=== PATIENT | male | born 1930 | race Caucasian/White ===

== ENCOUNTER 2017-06-15 14:47 | Emergency (ER) | payer MEDICARE, OTHER ==
[~2017-06-15] VITALS: Ht 157.5 cm; Wt 61.2 kg
[~2017-06-15 14:47] MED LIST: ACETAMINOPHEN325 M1 PO; AMOX TR-K CLV1 EAC1 PO; ASPIRIN EC81 MG PO; CARVEDILOL3.125 MG PO; COZAAR25 MG PO; ETODOLAC400 MG PO; FEOSOL325 MG PO; FINASTERIDE5 MG PO; GLIPIZIDE5 MG PO; METFORMIN HCL850 MG PO; NORCO 5-325 TA1 EACH PO; ONGLYZA5 MG PO; PAROXETINE HCL20 MG PO; PRAVASTATIN SOD40 MG PO; PRILOSEC20 MG PO; TOPROL XL25 MG PO; VITAMIN C500 M1 PO; VITAMIN D1000 UNIT PO
== END 2017-06-15 16:05 | disposition left against medical advice (07) ==
LOC: ED 14:47
DX: Z53.21 Procedure and treatment not carried out due to patient leaving prior to being seen by health care provider (principal)

== ENCOUNTER 2018-06-30 16:04 | Inpatient (IN) | payer OTHER ==
[~2018-06-30] VITALS: Ht 157.5 cm; Wt 54.1 kg
--- NOTE | ~2018-06-30 | DS ---
[facility] [address] [place], [place] [address] Draft ADMISSION DATE: 07/01/2018 DISCHARGE DATE: 07/04/2018 FINAL DIAGNOSES AT THE TIME OF DISCHARGE: 1. Intertrochanteric fracture, right hip. 2. Severe dementia. 3. Diabetes. HOSPITAL COURSE: The patient presented to the emergency room on 07/01/2018 because of a fall at home. He was seen in the ER where x-rays revealed a displaced intertrochanteric fracture of the right hip. He was admitted to the Orthopedic Service. He was evaluated by the hospitalist and thought to be medically optimized for hip stabilization. On the , he was taken the operating room, where he underwent an intramedullary nail fixation of his intertrochanteric hip fracture. Postoperatively, he has done well. He has extremely limited functional goals because of his severe dementia. However, he has been hemodynamically stable, his incisions are clean and dry. He is afebrile. His neurovascular exam has remained unchanged. We are going to discharge him home per his 's request. We pointed out to her that she may need some help in dealing with at home, but she seems absolutely adamant that she needs to take him home and will not consider placement in a facility. We are not going to maintain him on anticoagulation medications because his indicates he has frequent falls at home. We will see him back in two weeks for suture/staple removal. MD KD Crook/BREN /[id number] Copies: PATIENT NAME: AUGUST LUCERO DISCHARGE SUMMARY DATE OF : 31 REPORT #: [id number] PHYSICIAN: PRISCILLA FRAZIER MD PCP: SAUMYA SERRA MD REPORT IS CONFIDENTIAL AND NOT TO BE RELEASED WITHOUT AUTHORIZATION [address] [address] Draft ~ PATIENT NAME: AUGUST LUCERO DISCHARGE SUMMARY DATE OF : 31 REPORT #: [id number] PHYSICIAN: PRISCILLA FRAZIER MD PCP: SAUMYA SERRA MD REPORT IS CONFIDENTIAL AND NOT TO BE RELEASED WITHOUT AUTHORIZATION
--- OUTSIDE RECORDS SUMMARY | ~2018-06-30 | XMS | Clinical Summary ---
Demographics + + + | Address | [address] | | | [place] [address] | + + + | Home Phone | | + + + | Preferred Language | Unknown | + + + | Marital Status | | + + + | Bahai Affiliation | Unknown | + + + | Race | Unknown | + + + | Ethnic Group | Unknown | + + + Author + + + | Author | [facility] | + + + | Organization | [facility] | + + + | Address | Unknown | + + + | Phone | Unavailable | + + + Support + + +---------+ + | Name | Relationship | Address | Phone | + + +---------+ + | Velma Duque | ECON | Unknown | | + + +---------+ + | Carol Monroe | ECON | Unknown | | + + +---------+ + Care Team Providers + +------+ + | Care [place] Sheriff Name | Role | Phone | + +------+ + | Dr. Malena | PP | Unavailable | + +------+ + Allergies No Known Allergies Current Medications + + +-------+---------+------+------+-------+ | Prescription | Sig. | Disp. | Refills | Star | End | Statu | | | | | | t | Date | s | | | | | | Date | | | + + +-------+---------+------+------+-------+ | metFORMIN | Take 850 mg by mouth | | | | | Activ | | (GLUCOPHAGE) 850 MG | 2 (two) times daily | | | | | e | | tablet | with meals. | | | | | | + + +-------+---------+------+------+-------+ | glipiZIDE | Take 5 mg by mouth | | | | | Activ | | (GLUCOTROL) 5 MG | daily. One and a | | | | | e | | tablet | half tab | | | | | | + + +-------+---------+------+------+-------+ | ferrous sulfate | Take 325 mg by mouth | | | | | Activ | | 325 (65 FE) MG | 3 (three) times | | | | | e | | tablet | daily with meals. | | | | | | + + +-------+---------+------+------+-------+ | finasteride | Take 5 mg by mouth | | | | | Activ | | (PROSCAR) 5 MG | daily. | | | | | e | | tablet | | | | | | | + + +-------+---------+------+------+-------+ | PARoxetine (PAXIL) | Take 20 mg by mouth | | | | | Activ | | 20 MG tablet | daily. | | | | | e | + + +-------+---------+------+------+-------+ | omeprazole | Take 20 mg by mouth | | | | | Activ | | (PRILOSEC) 20 MG | daily. | | | | | e | | capsule | | | | | | | + + +-------+---------+------+------+-------+ | pravastatin | Take 40 mg by mouth | | | | | Activ | | (PRAVACHOL) 40 MG | daily. | | | | | e | | tablet | | | | | | | + + +-------+---------+------+------+-------+ | Ascorbic Acid | Take 500 mg by mouth | | | | | Activ | | (VITAMIN C) 500 MG | daily. | | | | | e | | tablet | | | | | | | + + +-------+---------+------+------+-------+ | aspirin 81 MG EC | Take 81 mg by mouth | | | | | Activ | | tablet | daily with | | | | | e | | | breakfast. | | | | | | + + +-------+---------+------+------+-------+ | carvedilol (COREG) | Take 3.125 mg by | | | | | Activ | | 3.125 MG tablet | mouth 2 (two) times | | | | | e | | | daily with meals. | | | | | | + + +-------+---------+------+------+-------+ | saxagliptin | Take 1 tablet by | | | | | Activ | | (ONGLYZA) 5 MG | mouth daily. | | | | | e | | tablet | | | | | | | + + +-------+---------+------+------+-------+ | Cholecalciferol | Take 1,000 Units by | | | | | Activ | | 1000 UNITS capsule | mouth daily. | | | | | e | + + +-------+---------+------+------+-------+ | losartan (COZAAR) | Take 50 mg by mouth | | | | | Activ | | 50 MG tablet | daily. | | | | | e | + + +-------+---------+------+------+-------+ Active Problems + + + | Problem | Noted Date | + + + | CAD (coronary artery disease) | 09/08/2013 | + + + + + | Last Assessment & Plan: Low grade CAD, Hx CAGB*1 (SVG to D2) | | at time of AVR. 83yo WM, doing relatively well, he | | continues to be modestly active. He is hard of hearing, his | | is with him, he denies any chest pain, shortness of breath, | | palpitations, or lightheadedness. No new visual disturbances, | | dysarthria, dysphasia, lateralizing signs or symptoms. Since | | last seen, one year ago, no surgical procedures or | | hospitalizations. [facility], [facility] | | anticipated. Tolerating medications. No changes in therapy.Hx | | CAB02/23/2012, CABG*1/AVR (#23 Manga-Ease, SVG to D1). Hx | | PCI/stent: 01/1997Hx Pacemaker/ICD: noLast Cath, 02/22/2012: left | | main OK, LAD OK, D2 90%, 10% prox-RCA. Severe .Last Echo, | | 02/21/2012: severe (calc MAR 0.7cm2, peak/mean gradients | | 60/36mmHg), mild-moderate MR, moderate TR, mild concentric LVH, | | LVEF 60-65%, mild bi-Atrial enlargement, RV enlarged, est | | systolic PAP 44-49mmHg.Last stress test, Lexiscan, 10/16/2009: NML | | perfusion, LVEf 77%.ECG, 11/23/2014: sinus rhythm, 1st degree | | AVB, non-spec ST-T changes laterally. | + + + + + | Hyperlipidemia | 09/08/2013 | + + + + + | Last Assessment & Plan: Hyperlipidemia, continue current meds | | at current dose (losartan). Labs anticipated. | + + + + + | Postprocedural non-healing wound | 03/06/2012 | + + + | Insomnia | 03/04/2012 | + + + | S/P AVR (aortic valve replacement) | 02/28/2012 | + + + + + | Last Assessment & Plan: Hx , s/p AVR/CABG*1 (#23 | | Magna-Ease, SVG to D2) 02/23/2012. Endocarditis prophylaxis | | reenforced. | + + + + + | DM (diabetes mellitus) | 02/28/2012 | + + + + + | Last Assessment & Plan: DM2, managed by PCP. | + + + + + | Edema | 02/28/2012 | + + + | HTN (hypertension) | 02/28/2012 | + + + + + | Last Assessment & Plan: HTN, controlled, continue current | | meds at current doses (carvedilol, losartan). | + + + + + | Impaired mobility and ADLs | 02/28/2012 | + + + | Gait difficulty | 02/28/2012 | + + + | Dementia | 02/21/2012 | + + + | Severe aortic stenosis | 02/21/2012 | + + + | Syncope and collapse | 02/20/2012 | + + + Family History + + +------+ + | Medical History | Relation | Name | Comments | + + +------+ + | Diabetes type II | Brother | | | + + +------+ + | Heart disease | Brother | | | + + +------+ + + +------+ + + | Relation | Name | Status | Comments | + +------+ + + | Brother | | | | + +------+ + + | Father | | | | + +------+ + + | Mother | | | | + +------+ + + Social History + +-------+ +--------+------+ | Tobacco Use | Types | Packs/Day | Years | Date | | | | | Used | | + +-------+ +--------+------+ | Former Smoker | | | | | + +-------+ +--------+------+ + +---+---+---+ | Smokeless Tobacco: | | | | | Never Used | | | | + +---+---+---+ + + | Comments: Pt quit smoking over 50 years ago | + + + + +---------+ + | Alcohol Use | Drinks/We | oz/Week | Comments | | | ek | | | + + +---------+ + | No | 0 | 0.0 | | | | Standard | | | | | drinks or | | | | | | | | | | equivalen | | | | | t | | | + + +---------+ + + + + | Sex Assigned at | Date Recorded | | | | + + + | Not on file | | + + + Last Filed Vital Signs + + + + | Vital Sign | Reading | Time Taken | + + + + | Blood Pressure | 114/64 | 11/23/2014 1:52 PM PDT | + + + + | Pulse | 70 | 11/23/2014 1:52 PM PDT | + + + + | Temperature | 36.6 C (97.9 F) | 03/17/2012 11:53 AM PST | + + + + | Respiratory Rate | 20 | 11/23/2014 1:52 PM PDT | + + + + | Oxygen Saturation | 97% | 11/23/2014 1:52 PM PDT | + + + + | Inhaled Oxygen | - | - | | Concentration | | | + + + + | Weight | 68.5 kg (151 lb) | 11/23/2014 1:52 PM PDT | + + + + | Height | 160 cm (5' 3") | 11/23/2014 1:52 PM PDT | + + + + | Body Mass Index | 26.75 | 11/23/2014 1:52 PM PDT | + + + + Plan of Treatment + + + + + | Health Maintenance | Due Date | Last Done | Comments | + + + + + | Vaccine: | 05/01/195 | | | | Dtap/Tdap/Td (1 - | 1 | | | | Tdap) | | | | + + + + + | Vaccine: Zoster (1 | | | | | of 2) | 2 | | | + + + + + | Vaccine: | | | | | Pneumococcal 65+ | 7 | | | | Low/Medium Risk (1 | | | | | of 2 - PCV13) | | | | + + + + + | Vaccine: Influenza | | | | | (Season Ended) | 9 | | | + + + + + Implants + +------+-------+ +--------+--------+--------+ | Implanted | Type | Area | Manufacture | Device | Expira | Model | | | | | r | | tion | / | | | | | | Identi | Date | Serial | | | | | | fier | | / Lot | + +------+-------+ +--------+--------+--------+ | Pacing Wire Dual | | N/A: | | | 07/09/ | 030-00 | | 030-005 - | | Heart | | | 2016 | 5 | | [id number]: Qty: 1 on | | | | | | /[id number] | | 02/23/2012 by Toni, | | | | | | 5 153 | | MD [place] | | | | | | | + +------+-------+ +--------+--------+--------+ | Pacing Wire Dual | | N/A: | | | 10/09/ | 030-00 | | 030-005 - | | Heart | | | 2016 | 5 | | [id number]: Qty: 1 on | | | | | | /[id number] | | 02/23/2012 by Toni, | | | | | | 5 155 | | MD [place] | | | | | | | + +------+-------+ +--------+--------+--------+ | Valve Aortic 23mm [id number] - | | N/A: | | | 11/26/ | 3300TF | | [id number]: Qty: 1 on | | Heart | | | 2016 | X23 | | 02/23/2012 by Toni, | | | | | | /[id number] | | MD [place] | | | | | | 04 /NA | + +------+-------+ +--------+--------+--------+ Results Not on filefrom Last 3 Months Insurance + +--------+ +------+-------+ + | Payer | Benefi | Subscriber | Type | Phone | Address | | | t Plan | ID | | | | | | / | | | | | | | Group | | | | | + +--------+ +------+-------+ + | MEDICARE | MEDICA | [id number] | | | [address] | | | RE | | | | [place] [address] | | | IP-OP | | | | | + +--------+ +------+-------+ + | COMMERCIAL OTHER | COMMER | [id number] | | | | | | CIAL | | | | | | | GENERI | | | | | | | C PLAN | | | | | + +--------+ +------+-------+ + + +--------+ +--------+ + + | Guarantor Name | Accoun | Relation to | Date | Phone | Billing Address | | | t Type | Patient | of | | | | | | | | | | + +--------+ +--------+ + + | AUGUST DUQUE | Person | Self [birth year] Home: | [address] | | | [place] | | [phone] | [phone] [place] | | | nathaniel | | | [phone] | [phone] | + +--------+ +--------+ + +
--- OUTSIDE RECORDS SUMMARY | ~2018-06-30 | XMS | Clinical Summary ---
Demographics + + + | Address | [address] | | | [place] [address] | + + + | Home Phone | | + + + | Preferred Language | Unknown | + + + | Marital Status | | + + + | Jainism Affiliation | Unknown | + + + | Race | Unknown | + + + | Ethnic Group | Unknown | + + + Author + + + | Author | [facility] | | | [facility] | + + + | Organization | [facility] | | | [facility] | + + + | Address | Unknown | + + + | Phone | Unavailable | + + + Care Team Providers + +------+ + | Care Iron Piler Name | Role | Phone | + +------+ + PP | Unavailable | + +------+ + Allergies No Known Allergies Medications + + + +---------+------+------+-------+ | Medication | Sig | Dispensed | Refills | Star | End | Statu | | | | | | t | Date | s | | | | | | Date | | | + + + +---------+------+------+-------+ | aspirin (ASPIRIN | Take 81 mg by mouth | | 0 | 09/1 | | Activ | | ADULT LOW STRENGTH) | Daily. | | | 3/20 | | e | | 81 MG EC tablet | | | | 12 | | | + + + +---------+------+------+-------+ | rosuvastatin | Take 10 mg by mouth | | 0 | 09/1 | | Activ | | (CRESTOR) 10 mg | Daily. | | | 3/20 | | e | | tablet | | | | 12 | | | + + + +---------+------+------+-------+ | tamsulosin | Take 0.4 mg by mouth | | 0 | 09/1 | | Activ | | (FLOMAX) 0.4 mg CAPS | Daily. | | | 3/20 | | e | | | | | | 12 | | | + + + +---------+------+------+-------+ | MetFORMIN & Diet | Take 500 mg by mouth | | 0 | 09/1 | | Activ | | Manage Prod | 2 times daily. | | | 20 | | e | | (APPFORMIN) 500 MG | | | | 12 | | | | MISC | | | | | | | + + + +---------+------+------+-------+ | CALCIUM PO | TABS daily | | 0 | 09/1 | | Activ | | | | | | 320 | | e | | | | | | 12 | | | + + + +---------+------+------+-------+ | Sucralfate | TABS daily, before | | 0 | 09/1 | | Activ | | (CARAFATE PO) | meals | | | 3/20 | | e | | | | | | 12 | | | + + + +---------+------+------+-------+ | Glucosamine | Take 500 mg by mouth | | 0 | 09/1 | | Activ | | Sulfate 500 MG TABS | 2 times daily. | | | 3/20 | | e | | | | | | 12 | | | + + + +---------+------+------+-------+ | melatonin ([facility] | Take 2 by mouth | | 0 | 09/1 | | Activ | | MELATONIN) 3 mg TABS | daily | | | 3/20 | | e | | | | | | 12 | | | + + + +---------+------+------+-------+ | Magnesium Chloride | CR-TABS 3 times a | | 0 | 09/1 | | Activ | | (MAG-DELAY PO) | day | | | 3/20 | | e | | | | | | 12 | | | + + + +---------+------+------+-------+ | Saxagliptin HCl | Take 5 mg by mouth | | 0 | 09/1 | | Activ | | (ONGLYZA) 5 MG TABS | Daily. | | | 3/20 | | e | | | | | | 12 | | | + + + +---------+------+------+-------+ | solifenacin | Take 5 mg by mouth | | 0 | 09/1 | | Activ | | (VESICARE) 5 mg | Daily. | | | 3/20 | | e | | tablet | | | | 12 | | | + + + +---------+------+------+-------+ | silodosin | Take 8 mg by mouth | | 0 | 09/1 | | Activ | | (RAPAFLO) 8 mg CAPS | Daily. | | | 3/20 | | e | | | | | | 12 | | | + + + +---------+------+------+-------+ | | as needed for pain | | 0 | 09/1 | | Activ | | Hydrocodone-Acetamin | every 4-6 hours. | | | 3/20 | | e | | ophen (NORCO PO) | | | | 12 | | | + + + +---------+------+------+-------+ | terazosin (HYTRIN) | Take 2 mg by mouth | | 0 | 09/ | | Activ | | 2 MG capsule | nightly. | | | 3/ | | e | | | | | | 12 | | | + + + +---------+------+------+-------+ | METOPROLOL | TABS 12.5 mg daily | | 0 | 08 | | Activ | | TARTRATE PO | | | | 8/20 | | e | | | | | | 11 | | | + + + +---------+------+------+-------+ Active Problems + + + | Problem | Noted Date | + + + | OBSTRUCTIVE SLEEP APNEA | 08/15/2010 | + + + | RESTLESS LEGS SYNDROME | 08/15/2010 | + + + | ESSENTIAL HYPERTENSION, BENIGN | 08/15/2010 | + + + | MEMORY LOSS | 08/15/2010 | + + + | ATHEROSCLEROTIC CARDIOVASCULAR DISEASE | 08/15/2010 | + + + + + | Overview: ICD-10 Record update | + + + + + | ORGANIC INSOMNIA UNSPECIFIED | 08/15/2010 | + + + + + | Overview: ICD-10 Record update | + + + + + | DEGENERATIVE JOINT DISEASE | 08/15/2010 | + + + Social History + +-------+ +--------+------+ | Tobacco Use | Types | Packs/Day | Years | Date | | | | | Used | | + +-------+ +--------+------+ | Never Assessed | | | | | + +-------+ +--------+------+ + + + | Sex Assigned at | Date Recorded | | | | + + + | Not on file | | + + + + + + + | Job Start Date | Occupation | Industry | + + + + | Not on file | Not on file | Not on file | + + + + + + + + | Travel History | Travel Start | Travel End | + + + + + + | No recent travel history available. | + + Last Filed Vital Signs + + + + | Vital Sign | Reading | Time Taken | + + + + | Blood Pressure | 118/60 | 10/03/2010 0000 PDT | + + + + | Pulse | - | - | + + + + | Temperature | - | - | + + + + | Respiratory Rate | - | - | + + + + | Oxygen Saturation | - | - | + + + + | Inhaled Oxygen | - | - | | Concentration | | | + + + + | Weight | 72 kg (158 lb 11.2 | 10/03/2010 0000 PDT | | | oz) | | + + + + | Height | 156.2 cm (5' 1.5") | 08/15/2010 0000 PDT | + + + + | Body Mass Index | 29.5 | 08/15/2010 0000 PDT | + + + + Plan of Treatment + + + + + | Health Maintenance | Due Date | Last Done | Comments | + + + + + | Vaccine: | | | | | Dtap/Tdap/Td (1 - [...] | | + + + + + Results Not on filefrom Last 3 Months
--- OUTSIDE RECORDS SUMMARY | ~2018-06-30 | XMS | Clinical Summary ---
Demographics + + + | Address | [address] | | | [place] [address] | + + + | Home Phone | | + + + | Preferred Language | Unknown | + + + | Marital Status | | + + + | Anabaptism Affiliation | Unknown | + + + | Race | Unknown | + + + | Ethnic Group | Unknown | + + + Author + + + | Author | [facility] | | | [facility] | + + + | Organization | [facility] | | | [facility] | + + + | Address | Unknown | + + + | Phone | Unavailable | + + + Care Team Providers + +------+ + | Care Title Curator Name | Role | Phone | + [...]
--- OUTSIDE RECORDS SUMMARY | ~2018-06-30 | XMS | Clinical Summary ---
Demographics + + + | Address | [address] | | | [place] [address] | + + + | Home Phone | | + + + | Preferred Language | Unknown | + + + | Marital Status | | + + + | Scientology Affiliation | Unknown | + + + | Race | Unknown | + + + | Ethnic Group | Unknown | + + + Author + + + | Author | [facility] | + + + | Organization | [facility] | + + + | Address [...] Team Providers + +------+ + | Care Manager Home Name | Role | Phone | + [...] | | 2016 | 5 | | [id number]: Qty: 1 on | | | | | | /[id number] | | 02/23/2012 by Toni, | | | | | | 5 153 | | MD [place] | | | | | | | + +------+-------+ +--------+--------+--------+ | Pacing Wire Dual | | N/A: | | | 10/09/ | 030-00 | | 030-005 - | | Heart | | | 2016 | 5 | | [id number]: Qty: 1 on | | | | | | /[id number] | | 02/23/2012 by Toni, | | | | | | 5 155 | | MD [place] | | | | | | | + +------+-------+ +--------+--------+--------+ | Valve Aortic 23mm [id number] - | | N/A: | | | 11/26/ | 3300TF | | [id number]: Qty: 1 on | | Heart | | | 2016 | X23 | | 02/23/2012 by Toni, | | | | | | /[id number] | | MD [place] | | | [...] +------+-------+ + | MEDICARE | MEDICA | [id number] | | | [address] | | | RE | | | | [place] [address] | | | IP-OP | | | | | + +--------+ +------+-------+ + | COMMERCIAL OTHER | COMMER | [id number] | | | | | | CIAL [...] | nathaniel | | | [address] | [phone] | + +--------+ +--------+ + +
--- OUTSIDE RECORDS SUMMARY | ~2018-06-30 | XMS | Clinical Summary ---
Demographics + + + | Address | [address] | | | [place] [address] | + + + | Home Phone | | + + + | Preferred Language | Unknown | + + + | Marital Status | | + + + | Pentecostalism Affiliation | Unknown | + + + | Race | Unknown | + + + | Ethnic Group | Unknown | + + + Author + + + | Author | [facility] | | | and [facility] | + + + | Organization | [facility] | | | and [facility] | + + + | Address | Unknown | + + + | Phone | Unavailable | + + + Care Team Providers + +------+ + | Care Bench Mechanic Name | Role | Phone | + [...]
--- OUTSIDE RECORDS SUMMARY | ~2018-06-30 | XMS | Clinical Summary ---
Demographics + + + | Address | [address] | | | [place] [address] | + + + | Home Phone | | + + + | Preferred Language | Unknown | + + + | Marital Status | | + + + | Uatsdin Affiliation | Unknown | + + + | Race | Unknown | + + + | Ethnic Group | Unknown | + + + Author + + + | Author | [facility] | + + + | Organization | [facility] | + + + | Address [...] Team Providers + +------+ + | Care Sidehand Name | Role | Phone | + [...] | | 2016 | 5 | | [id number]: Qty: 1 on | | | | | | /[id number] | | 02/23/2012 by Toni, | | | | | | 5 153 | | MD [place] | | | | | | | + +------+-------+ +--------+--------+--------+ | Pacing Wire Dual | | N/A: | | | 10/09/ | 030-00 | | 030-005 - | | Heart | | | 2016 | 5 | | [id number]: Qty: 1 on | | | | | | /[id number] | | 02/23/2012 by Toni, | | | | | | 5 155 | | MD [place] | | | | | | | + +------+-------+ +--------+--------+--------+ | Valve Aortic 23mm [id number] - | | N/A: | | | 11/26/ | 3300TF | | [id number]: Qty: 1 on | | Heart | | | 2016 | X23 | | 02/23/2012 by Toni, | | | | | | /[id number] | | MD [place] | | | [...] +------+-------+ + | MEDICARE | MEDICA | [id number] | | | [address] | | | RE | | | | [place] [address] | | | IP-OP | | | | | + +--------+ +------+-------+ + | COMMERCIAL OTHER | COMMER | [id number] | | | | | | CIAL [...] | [place] | | | [address] | [phone] | + +--------+ +--------+ + +
--- NOTE | 2018-06-30 18:45 | NUR ---
88YR OLD MAN ADMITTED FROM ER VIA STRETCHER TO ROOM 121. 3 PERSON ASSIST TO MOVE ONTO BED. TOLERATED WELL, ONLY C/O PAIN WHEN LIFTING R LEG, GOOD CMS TO FOOT, POSITIONED FOR COMFORT, EXTREMELY NIKOLAI, WILL BE COMING IN FROM HOME SOON TO SIGN CONSENT AND HELP WITH ADMISSION. PT HAS DX OF ALZHEIMERS, VERY POOR MEMORY. IV TO R AC. NARCISOELY CATH SECURE PLACED IN ER. BED ALARM IS ACTIVE FOR PT SAFETLY.
--- NOTE | 2018-06-30 19:00 | NUR ---
SHIFT REPORT RECEIVED FROM DAYSHIFT BRADY GRACE AT BEDSIDE. PT AWAKE AND VERY HABEMATOLEL. IV FLUIDS INFUSING, IV SITE WNL. URINE SAMPLE COLLECTED BY LESLY ABREU AND SENT TO LAB. PT RESTING IN BED, NO DISTRESS NOTED. NO CRYING, MOANING, OR FACIAL GRIMACING NOTED. PT APPEARS COMFORTABLE. CALL LIGHT IN REACH, BED ALARM ON FOR SAFETY. FAMILY IN ROOM.
--- NOTE | 2018-06-30 19:57 | NUR ---
VITALS AND I&OS DONE AND CHARTED. BED WEIGHT DONE AND CHARTED. BEDSIDE TABLE AND CALL LIGHT WITHIN REACH.
--- NOTE | 2018-06-30 20:09 | NUR ---
BLOOD SUGAR CHECKED AND CHARTED. INFORMED BRADY BARAJAS OF RESULTS.
--- NOTE | 2018-06-30 20:15 | NUR ---
PHARMACY TO FOLLOW-UP FOR MED REC. PT'S PROVIDED THIS RN WITH PT'S MOST UP TO DATE MED LIST, COPY IN PT'S CHART. PHARMACY AWARE.
--- NOTE | 2018-06-30 20:45 | NUR ---
ASSESSMENT COMPLETE. VSS AND DOCUMENTED. PT VERY BILL [place], UNABLE TO ASSESS ORIENTATION. HX:DEMENTIA. PT COMPLIANT AND OBEYS COMMANDS AT THIS TIME. IV LR BOLUS INFUSING PER MD ORDERS, IV SITE WNL. ACCUCHECK RESULT OF 391, DR GALVEZ AWARE. INSULIN ADMINISTERED VIA INSULIN SS. FAMILY IN ROOM. CONSENT SIGNED BY PT'S KAY, THIS RN SIGNED WITNESS. PT'S GRANDSON STAYING THE NIGHT WITH PT. BED ALARM ON FOR SAFETY, PT APPEARS COMFORTABLE. NO NEEDS AT THIS TIME. CALL LIGHT IN REACH.
--- NOTE | 2018-06-30 23:08 | NUR ---
PT RESTING IN BED, RR WNL. PT APPEARS COMFORTABLE. NO DISTRESS NOTED. PT SMILING AND WATCHING TELEVISION. IRA ABEBE IN ROOM WITH PT. IV LR BOLUS INFUSING PER MD ORDERS, IV SITE WNL. BED ALARM ON FOR SAFETY. CALL LIGHT IN REACH.
--- NOTE | 2018-07-01 00:30 | NUR ---
MIDNIGHT ACCUCHECK WNL, NO INSULIN REQUIRED PER INSULIN SS. RESULT OF 108. WILL MONITOR. LR BOLUS COMPLETE. ASKED FOR CLARIFICATION WITH DR GALVEZ REGARDING FLUIDS AFTER LR BOLUS IS COMPLETE. PER DR GALVEZ, AFTER LR BOLUS IS COMPLETE RESUME ER BRIDGE ORDERS. ER BRIDGE ORDERS INFUSING PER MD ORDERS, IV SITE WNL. PT VERY SALAMATOF, WRITTEN QUESTIONS PROVIDED. PT DENIES PAIN OR NEEDS. CALL LIGHT IN REACH. BED ALARM ON FOR SAFETY, IRA IN ROOM.
--- NOTE | 2018-07-01 01:21 | NUR ---
GRANDSON CALLED RN TO ROOM, STATED PT WANTED TO "TALK TO SOMEONE". WRITTEN COMMUNICATION TO PT, THIS PT KNOWN TO THIS [employer]AL [employer]. 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 PT STATED HE WAS SUPPOSE TO BE IN THE HOSPITAL. COMMUNICATED TO PT HE WAS. ENCOURAGED SLEEP. IRA REMAINS AT BEDSIDE.
--- NOTE | 2018-07-01 04:00 | NUR ---
SPOKE TO DR GALVEZ REGARDING PT'S TRENDING BLOOD SUGAR. 0400 BS RESULT OF 80. NEW ORDERS READ BACK TO DISCONTINUE CURRENT NS 125 MLS/HR AND TO START D5LR @125 MLS/HR.
--- NOTE | 2018-07-01 04:34 | NUR ---
ASSESSMENT COMPLETE. FLUIDS INFUSING PER MD ORDERS, IV SITE WNL (SEE PREVIOUS NOTE). BLOOD RETURN NOTED. PT VERY [place], HX MEMORY LOSS. DISCUSSED WITH MEAT AND POULTRY INSPECTOR, 1MG PRN MORPHINE ADMINISTERED FOR NONVERBAL CUES OF PAIN INCLUDING RESTLESSNESS, FACIAL GRIMACING, AND TWITCHING AT HIP. CMS INTACT, BILATERAL RADIAL AND PEDAL PULSES NOTED. SKIN WARM, DRY, AND PINK. SAAVEDRA CATHETER IN PLACE, PT VOIDING QS BORDERLINE. WILL MONITOR. BED ALARM IN PLACE, CALL LIGHT IN REACH. GRANDSON IN ROOM.
--- NOTE | 2018-07-01 05:18 | NUR ---
PT RESTING IN BED, EYES CLOSED, RR WNL. PT ON RA, O2 SAT 90%, HR WNL. PT APPEARS COMFORTABLE, NO FACIAL GRIMACING OR TWITCHING NOTED. CALL LIGHT IN REACH, BED ALRM ON FOR SAFETY. GRANDSON IN ROOM.
--- NOTE | 2018-07-01 05:26 | NUR ---
DISCUSSED WITH CRM ADMINISTRATOR. DIET ORDER UPDATED TO NPO PT IS GOING IN FOR SURGERY TODAY FOR FRACTURED HIP ON 07/01/18.
--- NOTE | 2018-07-01 06:18 | NUR ---
PT VERY [place], GRANDSON IN ROOM. VSS, PT ON RA. 1MG MORPHINE GIVEN X1 FOR PAIN. D5LR @125 MLS/HR, IV SITE FIELDSTART. PT VIODING QS, BUT BORDERLINE. NO BM THIS SHIFT. PT NPO FOR SURGERY. CONSENT SIGNED. Q4H BS CHECKS. ANCEF TO OR.
--- NOTE | 2018-07-01 06:49 | NUR ---
MESSAGE SENT TO DR GALVEZ REGARDING PT'S LOW UO FOR THE SHIFT. THE PT IS SHORT 84 MLS FROM BEING QS. PICK OUT HANDBRADY JUNIOR AWARE.
--- NOTE | 2018-07-01 07:05 | NUR ---
BEDSIDE HANDOFF REPORT RECEIVED FROM BEER STILL RUNNER COMPOUNDER RN. PT SLEEPING LEFT UNDISTURBED, FAMILY AT BEDSIDE. BED ALARM IN PLACE.
--- NOTE | 2018-07-01 07:10 | CONS ---
[facility] [address], [place] [address] Signed DATE OF CONSULTATION: Emergency Room Consult/ History And Physical. HISTORY OF PRESENT ILLNESS: I was asked to see Mr. Duque in the emergency room at the request of the emergency room provider. Mr. Duque was living at home with his earlier today. He was in the bedroom and she thought he was asleep and she was elsewhere in the house when she heard him call out. She said she went into the bedroom and he apparently had fallen down in between the bed and some furniture along the wall. She noted he was complaining mostly of knee pain. It sounds as if she got him back to bed but because of ongoing pain and inability to move the right leg, he was brought to the emergency room where x-rays revealed a basilar cervical fracture with some displacement and shortening. PAST MEDICAL HISTORY: Significant, but will be deferred to the internal medicine window covering sales consultant. CURRENT MEDICATIONS: Noted on the ER chart as are his allergies. At the present time, it would appear that his only complaint is pain in the right hip and groin area. PHYSICAL EXAMINATION: GENERAL: He is a pleasant severely senile elderly gentleman, lying in bed, in no acute distress with the leg supported on a couple of pillows. HEENT: On examination, the head and neck do not show any evidence of craniofacial trauma and he apparently had a CT scan of the head, which was unremarkable for any intracranial lesions. NECK: Nontender. CHEST: Clear. CARDIAC: Reveals a regular rhythm. I do not detect any murmurs. ABDOMEN: Scaphoid and nontender. EXTREMITIES: The right lower extremity is shortened and externally rotated. He is able to move his toes when asked to do so, I get inconsistent sensory responses from him. Pedal pulses are difficult to palpate on either side, but the nail beds were pink with a quick capillary refill. X-rays were ordered and reviewed and they showed a significantly displaced basilar cervical fracture. After a rather lengthy discussion with Mr. Duque and more importantly his , who appears to be his primary caregiver. We have outlined the statistics concerning femoral neck fractures in elderly men including the significant potential risk of mortality and Electronically Signed By: AIDEN SANDY MD 07/01/18 0710 PATIENT NAME: AUGUST DUQUE CONSULTATION DATE OF : 32 REPORT #: [id number] PHYSICIAN: AIDEN SANDY MD PCP: SAUMYA SERRA MD REPORT IS CONFIDENTIAL AND NOT TO BE RELEASED WITHOUT AUTHORIZATION [facility] [address], [place] [address] Signed morbidity with or without surgical repair. I did tell her however that the statistically generally the patient's have a greater survive ability and better pain control with surgical reconstruction than with simple bed rest treatment and comfort care measures. She is anxious to have him come back home and she certainly seems in favor of proceeding with hip nailing on the right. We outlined all the potential risks and complications associated with a right hip pinning and she seems comfortable with proceeding. We will await Dr. Ceja's evaluation, but we will tentatively plan on a TFN nail for tomorrow morning. Aiden Sandy MD WFB/MODL /[id number] Copies: ~ Electronically Signed By: AIDEN SANDY MD 07/01/18 0710 PATIENT NAME: AUGUST DUQUE [place] CONSULTATION DATE OF : 31 REPORT #: [id number] PHYSICIAN: AIDEN SANDY MD PCP: SAUMYA SERRA MD REPORT IS CONFIDENTIAL AND NOT TO BE RELEASED WITHOUT AUTHORIZATION
--- NOTE | 2018-07-01 07:21 | NUR ---
BARI FROM PHARMACY MADE AWARE OF PT'S COPY OF MOST RECENT HOME MED LIST IN PT'S CHART.
--- NOTE | 2018-07-01 10:05 | NUR ---
DR. GALVEZ NOTIFIED OF LOW URINE OUTPUT, NONEW ORDERS AT THIS TIME. NEW IV ATTEMPTED TO R ARM, UNABLE TO GET, RADIAL DRILL PRESS OPERATOR FOR PLASTIC TO ATTEMPT IV. PT ON ROOM AIR, LUNG SOUNDS CLEAR. PT DENIES PAIN. PT NPO FOR SURGERY, BOWEL TONES ACTIVE. CMS INTACT. RIGHT HIP DISPLACE, RIGHT LEG EXTERNALLY ROTATED. PT WITH SAAVEDRA CATH IN PLACE, DRAINING AD URINE. D5LR INFUSING AT 125 ML/HR. PT AND FAMILY DENY OTHER NEEDS AT THIS TIME.
--- NOTE | 2018-07-01 11:48 | NUR ---
PT BLOOD GLUCOE 266, GIVEN 5 UNTIS SS HUMALOG. PT TO OR WITH DAYSURGERY RN, HANDOFF REPORT GIVEN.
[2018-07-01] MEDS ORDERED: LUBRICANT EYE15 M1 OU (11:53)
[2018-07-01] MEDS ORDERED: VITAMIN B-121000 MCG PO (11:54)
[2018-07-01] MEDS ORDERED: CHLORTHALIDONE25 MG PO (11:54)
[2018-07-01] MEDS ORDERED: LUBRICANT EYE3.5 G2 OU (11:55)
--- NOTE | 2018-07-01 12:01 | NUR ---
MED REC COMPLETE
--- NOTE | 2018-07-01 14:47 | NUR ---
07/01/18 1447 Ariadne Chow SN 1423- PT ARRVIES IN PACU. OPA IN PLACE. PT UNRESPONSIVE TO VERBAL ANDTACTILE STIMULI. RESPS EVEN AND UNLABORED. 02 SAT HIGH 90S ON 10 L VIA MASK. PT UNABLE TO REPORT PAIN NASUEA AND DIZZINESS AT THIS TIME. 1425- PT IN AND OUT OF SECOND DEGREE AV BLOCK. ALEXIS ANDERSEN AT BEDSIDE IS AWARE OF THIS. PT REMAINS UN RESPONSIVE TO VERBAL AND TACTILE STIMULIL. RESPS EVEN AND UNLABORED, 02 SATS HIGH 90S ON 10 L VIA MASK. PT UNABLE TO REPORT PAIN NASUEA AND DIZZINESS. 1430- PT REMAINS RESTING IN SUPINE POSITION WITH EYES CLOSED. DEPISTE VERBAL AND TACTILE STIMULI, PT REMAINS ASLEEP. OPENED EYES IN RESPONSE TO BRADY MESSINA'S VERBAL STIMULI. RESPS EVEN AND UNLABORED, 02 SAT HIGH 90S ON RA. 1434- PT 02 REMOVED AT THIS TIME. TOLERATING WELL. RESPS EVEN AND UNLABORED, 02 SAT HIGH 90S ON RA. OPA REMAINS IN PLACE. 1442- CO2 MONITOR PLACED AT THIS TIME WITH 2L SUPPLEMENTAL 02 ADMINSTERED. TOLERATING WELL. RESPS EVEN AND UNLABORED, 02 SAT HIGH 90 ON RA. PT UNABEL TO REPORT PAIN NAUSEA AND DIZZINESS AT THIS TIME. 1443- OPA REMOVED BY BRADY DOYLE. PT ABLE TO ASSIST WITH REMOVAL BY PUSHING IT OUT WITH HIS TONGUE. TOLERATING WELL. RESPS EVEN AND UNLABORED, 02 SAT HIGH 90S ON 2L VIA NC. PT UNABLE TO VERBALIZE PAIN NAUSEA AND DIZZINESS.
--- NOTE | 2018-07-01 15:32 | EKG ---
[facility] [address] [facility] [place], [place] [address] Signed Sinus rhythm with 1st degree AV block Nonspecific T wave abnormality Abnormal ECG No previous ECGs available Confirmed by NAIMA GALVEZ MD ([id number]) on 07/01/2018 3:32:19 PM Electronically Signed By: NAIMA GALVEZ MD 07/01/18 1532 PATIENT NAME: AUGUST LUCERO Electrocardiogram DATE OF : 31 PHYSICIAN: NAIMA GALVEZ MD REPORT #: [id number] REPORT IS CONFIDENTIAL AND NOT TO BE RELEASED WITHOUT AUTHORIZATION
--- NOTE | 2018-07-01 16:17 | NUR ---
PT RECEIVED FROM PACU, BEDSIDE REPORT RECEIVED FROM RN. PT ON 2L NC, O2 SATS 98-99%, LUNG SOUNDS CLEAR. PT DENIES NAUSEA, BOWEL TONES ACTIVE, GIVEN A FEW SIPS OF WATER. PT DENIES PAIN, GIVEN SCHEDULED TYLENOL. RIGHT HIP WITH OPSITE DRESSING X2, PROXIMAL DRESSING SATURATED WITH SANGUINOUS DRAINAGE. PT WITH SPINAL ANESTHESIA, DERMATOME LEVEL L1. PT WITH SAAVEDRA CATH IN PLACE, DRAINING YELLOW URINE. VSS. PT DENIES OTHER NEEDS AT THIS TIME. BED ALARM IN PLACE, CALL LIGHT WITHIN REACH.
--- NOTE | 2018-07-01 16:52 | NUR ---
PT INCREASED TO CLEAR LIQUID DIET, DR. GALVEZ CALLED TO DISCUSSED BLOOD GLUCOSE AND HUMALOG ORDER, ORDER TO CHANGE TO [facility]. ALSO DISCUSSED WITH DR. GALVEZ TORADOL ORDER WITH RECENT LOW URINE OUTPUT, ORDER TO DISCONTINUE TORADOL AND START OXYCODONE 2.5-5 MG Q4PRN FOR BREAKTHROUGH PAIN. EMILY MACIEL CRNA CALLED TO VERIFY OXYCODONE WITH INTRATHECAL MORPHINE, TELPHONE ORDER FOR OK TO GIVE.
--- NOTE | 2018-07-01 17:32 | NUR ---
PT TACHYCARDIAC, HR UP TO 130, NWO IN 120'S. VSS. PT DENIES CHEST PAIN. PT SITITNG UP IN BED, EATING CLEAR TRAY. DR. GALVEZ CALLED AND NOTIFIED, ORDER TO CONTINE TO MONITOR, DOES NOT WANT TO TREAT TACHYCARDIA DUE TO IRREGULAR RHYTHM AFTER SURGERY.
--- NOTE | 2018-07-01 18:17 | NUR ---
PT RESTING IN BED, AT BEDSIDE. PT SLIGHTLY HYPOTENSIVE BP 97/62, HEART RATE 121. PT REPOSITIONED IN BED. PT DENIES PAIN. URINE OUTPUT 75 SINCE ARRIVING TO FLOOR AT 1540. PT DENIES OTHER NEEDS AT THIS TIME.
--- NOTE | 2018-07-01 18:20 | NUR ---
DR GALVEZ NOTIFIED OF BP 97/62, HR 121, URINE OUTPUT 75 ML. VERBAL ORDER FOR EKG. WINEMAKER NOTIFIED OF EKG ORDER.
--- NOTE | 2018-07-01 19:10 | NUR ---
SHIFT REPORT RECEIVED FROM [facility] BRADY NOBLE AT BEDSIDE. PT AWAKE AND RESTING IN BED, ON RA, RR WNL. CPOX IN PLACE, 02 SAT IN 90'S. PT ON TELE #5, HR 110-120, MD ALREADY AWARE PER BRADY NOBLE. SAAVEDRA CATHETER IN PLACE, LOW UO, MD ALREADY AWARE. WILL MONITOR. IV FLUIDS INFUSING PER MD ORDER, IV SITE WNL. BED ALARM ON FOR SAFETY, CALL LIGHT IN REACH. DRESSINGS TO HIPS X2 INTACT, INFERIOR DRESSING CDI, NO SHADOWING OR DRAINAGE NOTED. SUPERIOR DRESSING SATURATED WITH LIGHT SEROSANGUINEOUS DRAINING, NO POOLING NOTED. WILL MONITOR.
--- NOTE | 2018-07-01 20:30 | NUR ---
ASSESSMENT COMPLETE, SCHEDULED MEDICATIONS GIVEN (SEE EMAR). PT VERY [place], CAN HEAR OCCASSIONALLY. VSS, CPOX IN PLACE. O2 SAT IN 90'S ON RA. HR 110-120, TELE#5, SINUS TACHY. NO NEW CHANGES TO DRESSING TO RIGHT HIP FROM SHIFT CHANGE (SEE PREVIOUS NOTE). WILL MONITOR. PT DENIES PAIN, APPEARS COMFORTABLE. SAAVEDRA CATHETER IN PLACE, WILL MONITOR UO. KHADRA CARE COMPLETED BY THIS RN. PT ASSISTED WITH REPOSITIONING WITH HELP FROM THIS RN AND ALCOHOL RUBBER. ACUCHECK 230, 5 UNITS SLIDING SCALE ADMINISTERED. IV FLUIDS INFUSING PER MD ORDERS, IV SITE WNL. BED ALARM ON FOR SAFETY, CALL LIGHT IN REACH.
--- NOTE | 2018-07-01 22:23 | NUR ---
PT'S CALL LIGHT SOUNDED. ASSISTED HIM WITH COVERS. HE DENIES FURTHER NEEDS AT THIS TIME. CALL LIGHT IS WITHIN REACH AND BED ALARM IS ON, HE IS VISABLE FROM THE NURSES STATION.
--- NOTE | 2018-07-01 23:00 | NUR ---
SPOKE TO DR GALVEZ REGARDING PT'S LOW URINE OUTPUT. PT HAS VOIDED 75 MLS SINCE SHIFT CHANGE. PER DR GALVEZ, NO NEED TO NOTIFY HIM OF LOW UO UNLESS UO IS LESS THAN 15/CC AN HOUR.
--- NOTE | 2018-07-01 23:39 | NUR ---
PT PULLED IV FROM RT FOREARM WHICH WAS THE FIELD START AND TOOK CPOX SENSOR OFF. REPLACE CPOX SENSOR AND PLACED GAUZE WITH PRESSURE OVER IV SITE AND COBAN. CATH TIP WAS INTACT. BED ALARM IS ON AND CALL LIGHT IS CLOSE.
--- NOTE | 2018-07-02 01:10 | NUR ---
PT AWAKE AND RESTING IN BE, ON RA O2 SAT WNL. HR 104, SINUS TACHY. PT ATTEMPTING TO REMOVE TELE PADS. TELE PADS REPLACED. IV FLUIDS INFUSING PER MD ORDERS, IV SITE WNL. BED ALARM ON FOR SAFETY. CALL LIGHT IN REACH.
--- NOTE | 2018-07-02 01:58 | NUR ---
PT IS PICKING AT IV AND PULSEOX. ASKED PT TO LEAVE THEM ALONE AND REPOSITIONED WIRES TO HIDE THEM. CALL LIGHT IS CLOSE AND BED ALARM IS ON.
--- NOTE | 2018-07-02 02:26 | NUR ---
VITALS AND I&OS DONE AND CHARTED. INFORMED BRADY BARAJAS OF LOW OUTPUT. WITH THE HELP OF BRADY MARTÍNEZ WE REPOSITIONED PT IN BED . BEDSIDE TABLE AND CALL LIGHT IN REACH.
--- NOTE | 2018-07-02 02:45 | NUR ---
ASSESSMENT COMPLETE. NO NEW CONCERNS OR CHANGES. VSS, IV FLUIDS INFUSING PER MD ORDERS, IV SITE WNL. CPOX IN PLACE, PT ON RA, O2 SAT 90'S. HR SINUS RHYTHM IN 90'S. TELE#5. SCHEDULED TYLENOL ADMINISTERED WITHOUT CONCERN. PT VERY [place], DENIES PAIN. APPEARS COMFORTABLE, NO FACIAL GRIMACING NOTED. WILL MONITOR. NO CHANGES REGARDING DRESSING TO HIP. SUPERIOR GAUZE DRESSING SATURATED WITH SEROSANGUINEOUS DRAINAGE, NO POOLING OF DRAINAGE NOTED. WILL MONITOR. INFERIOS DRESSING CDI. ICE TO HIP IN PLACE. SAAVEDRA CATHETER IN PLACE, ATTENDS ON. CCALL LIGHT IN REACH. BED ALARM ON FOR SAFETY.
--- NOTE | 2018-07-02 03:17 | EKG ---
[facility] [address] [place] [address] Signed Sinus tachycardia with 1st degree AV block with premature atrial complexes with aberrant conduction T wave abnormality, consider inferolateral ischemia Abnormal ECG When compared with ECG of 01-JUL-2018 15:18, (Unconfirmed) aberrant conduction is now present Sinus rhythm is no longer with 2nd degree AV block (Mobitz I) Vent. rate has increased BY 55 BPM Confirmed by NAIMA GALVEZ MD ([id number]) on 07/02/2018 3:17:32 AM Electronically Signed By: NAIMA GALVEZ MD 07/02/18 0317 PATIENT NAME: AUGUST LCUERO Electrocardiogram DATE OF : 31 PHYSICIAN: NAIMA GALVEZ MD REPORT #: [id number] REPORT IS CONFIDENTIAL AND NOT TO BE RELEASED WITHOUT AUTHORIZATION
--- NOTE | 2018-07-02 03:17 | EKG ---
[facility] [address] [facility] [place] [address] Signed Sinus rhythm with 2nd degree AV block (Mobitz I) T wave abnormality, consider inferior ischemia Abnormal ECG When compared with ECG of 30-JUN-2018 17:56, (Unconfirmed) Sinus rhythm is now with 2nd degree AV block (Mobitz I) Vent. rate has decreased BY 35 BPM Inverted T waves have replaced nonspecific T wave abnormality in Inferior leads T wave inversion more evident in Lateral leads Confirmed by NAIMA GALVEZ MD ([id number]) on 07/02/2018 3:17:27 AM Electronically Signed By: NAIMA GALVEZ MD 07/02/18 0317 PATIENT NAME: AUGUST LUCERO Electrocardiogram DATE OF : 31 PHYSICIAN: NAIMA GALVEZ MD REPORT #: [id number] REPORT IS CONFIDENTIAL AND NOT TO BE RELEASED WITHOUT AUTHORIZATION
--- NOTE | 2018-07-02 04:25 | NUR ---
NEW BAG OF IV FLUIDS HUNG, IV SITE WNL. SCHEDULED IV ABX INFUSING. PT APPEARS COMFORTABLE, NO DISTRESS NOTED. BED ALARM ON FOR SAFETY, CALL LIGHT IN REACH.
--- NOTE | 2018-07-02 06:29 | NUR ---
DR GALVEZ NOTIFIED OF PT'S TOTAL UO THIS SHIFT. UO WAS 185MLS THIS SHFIT . LAST 4HR UO WAS 50 MLS. NO NEW ORDERS, PER DR GALVEZ WILL WAIT FOR CHEMISTRY RESULTS AND REEVALUATE.
--- NOTE | 2018-07-02 06:55 | NUR ---
BEDSIDE HANDOFF REPORT RECEIVED FROM RADIO INTERFERENCE EXPERT RN. PT RESTING IN BD, BED ALARM IN PLACE. PT APPEARS COMFORTABLE. LR INFUSING AT 125 ML/HR.
--- NOTE | 2018-07-02 07:02 | OR ---
[facility] [address], [place] [address] Signed DATE OF OPERATION: 07/01/2018 SURGEON: Aiden Frazier MD PREOPERATIVE DIAGNOSIS: Basilar femoral neck fracture, right. POSTOPERATIVE DIAGNOSIS: Basilar femoral neck fracture, right. PROCEDURE: TFN nail intramedullary nail fixation, right basilar femoral neck fracture. ANESTHESIA: Spinal. There were no specimens or complications. BLOOD LOSS: Minimal. IMPLANTS: #11 short TFN nail, a 90 mm spiral blade, and a 38 mm 5.0 locking screw. WHAT WAS DONE: The patient was taken to the operating room. After spinal was administered by the Anesthesia service, the patient was placed on the fracture table and gently sedated. The fracture was then reduced with longitudinal traction and slight medial rotation. AP and lateral fluoroscopy confirmed good alignment and good position. The patient was then prepped and draped in a routine standard fashion. I then made a small incision near the tip of the greater trochanter. A curved awl was introduced and after checking the position fluoroscopically, a small defect was made in the greater trochanter. We then introduced the guide dontae and navigated down the canal without any difficulty. We then passed the proximal reamer and then passed a 12 mm reamer. We then placed the #11 TFN nail and positioned it under fluoroscopic control. It was then secured proximally with a 90 mm spiral blade, which was then locked in distally with a single screw. AP and lateral fluoroscopy confirmed good alignment, good position, and a stable construct. The incisions were gently irrigated and closed in standard fashion. Sterile dressings applied. The patient was awakened and taken to the recovery room where he arrived in stable condition. Counts were correct and antibiotic protocols were followed. Electronically Signed By: AIDEN FRAZIER MD 07/02/18 0702 PATIENT NAME: AUGUST LUCERO OPERATIVE REPORT DATE OF : 31 REPORT #: [id number] PHYSICIAN: AIDEN FRAZIER MD PCP: SAUMYA SERRA MD REPORT IS CONFIDENTIAL AND NOT TO BE RELEASED WITHOUT AUTHORIZATION [address] [place] [address] Signed Aiden Frazier MD WFThee/MODL /[id number] Copies: ~ Electronically Signed By: AIDEN FRAZIER MD 07/02/18 0702 PATIENT NAME: AUGUST LUCERO OPERATIVE REPORT DATE OF : 31 REPORT #: [id number] PHYSICIAN: AIDEN FRAZIER MD PCP: SAUMYA SERRA MD REPORT IS CONFIDENTIAL AND NOT TO BE RELEASED WITHOUT AUTHORIZATION
--- NOTE | 2018-07-02 07:55 | NUR ---
PATIENT RESTING IN BED. RN IN ROOM. PATIENT TRANSFERRED TO CHAIR. PATIENT USES A WALKER. TWO PERSON ASSISTING. GOWN CHANGED. LINENS CHANGED. SETS UP TABLE FOR BREAKFAST. CALL LIGHT WITHIN REACH. NO OTHER NEEDS AT THIS TIME
--- NOTE | 2018-07-02 07:55 | NUR ---
PT RESTING IN BED, PT 2PA WITH FWW TO GET TO CHAIR. PT ON ROOM AIR, LUNG SOUNDS CLEAR. PT DENIES PAIN. BOWEL TONES ACTIVE, ADVANCED TO ADA DIET FOR BREAKFAST. CMS INTACT, WITHOUT EDEMA, SCDS IN PLACE. RIGHT HIP WITH OPSITE GAUZE DRESSING, PROXIMAL DRESSING SATURATED, UNCHANGED FROM YESTERDAY. PT WITH SAAVEDRA CATH, DRAINING INADEQUATE AMOUNT OF URINE. PT DENIES OTHER NEEDS AT THIS TIME.
--- NOTE | 2018-07-02 09:47 | NUR ---
PATIENT SITTING UP IN CHAIR. VITAL SIGNS AND I&O DONE. CALL LIGHT WITHIN REACH. NO OTHER NEEDS AT THIS TIME
--- NOTE | 2018-07-02 10:17 | NUR ---
PT WORKED WITH P.T., 2PA TO WALK AROUND EB, ASSISTED BACK TO BED. PT GIVEN IV LASIX PER ORDER. SALINE LOCKED. BED ALARM IN PLACE.
--- NOTE | 2018-07-02 12:15 | NUR ---
PT ASSISTED TO CHAIR FOR LUNCH. GIVEN 1 UNIT SS INSULIN FOR BLOOD GLUCOSE 172. URINE OUTPUT INCREASED AFTER LASIX. PT DENIES OTHER NEEDS AT THIS TIME. FAMILY AT BEDSIDE.
--- NOTE | 2018-07-02 13:48 | NUR ---
PATIENT SITTING UP IN CHAIR. PATIENT PULLED THE IV AND TELE OFF. RN NOTIFIED. PARTIAL BEDBATH DONE. GOWN CHANGED. TWO PERSON ASSISTING. VITAL SIGNS AND I&O DONE. CALL LIGHT WITHIN REACH. NO OTHER NEEDS AT THIS TIME
--- NOTE | 2018-07-02 14:39 | NUR ---
PT PULLED OUT IV. NEW IV 20G STARTED TO LEFT UPPER ARM ATTEMPTED IV INSERTION TO LEFT FOREARM, UNABLE TO OBTAIN, HEMATOMA FORMED, PRESSURE DRESSING PLACE. P.T. ASSISTED TO WALK PT IN VANN. PT ASSISTED BACK TO BED. BED ALARM IN PLACE. AT BEDSIDE.
--- NOTE | 2018-07-02 17:05 | NUR ---
PT ASSISTED TO CHAIR, 2PA WITH FWW. PT GIVEN 5 UNITS SS HUMALOG FOR BLOOD GLUCOSE 249. PT DENIES OTHER NEEDS AT THIS TIME.
--- NOTE | 2018-07-02 17:09 | NUR ---
PT ON ROOM AIR, LUNG SOUNDS CLEAR. 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 PT WORKED WITH P.T., WALKED IN THE VANN WITH FREQUENT BREAKS. PAIN WELL CONTROLLED WITH TYLENOL. IV SALINE LOCKED, IV LASIX GIVEN, IMRPOVED URIEN OUTPUT AFTER LASIX. RIGHT HIP DRESSING WITH SANGUINOUS DRAINAGE TO PROXIMAL DRESSING, UNCHANGED FROM YESTERDAY. CMS INTACT, WITHOTU EDEMA, SCDS IN PLACE. PLAN FOR POSSIBLE SWING BED ON THURSDAY.
--- NOTE | 2018-07-02 17:16 | NUR ---
PATIENT SITTING UP IN CHAIR. VITAL SIGNS AND I&O DONE. CALL LIGHT WITHIN REACH. NO OTHER NEEDS AT THIS TIME
--- NOTE | 2018-07-02 18:25 | NUR ---
PT ASSISTED BACK TO BED. PT FIDGETING, PULLING AT SAAVEDRA, VERBAL ORDER FROM DR. GALVEZ TO VA SAAVEDRA NOW, COMPLETED. PT PULLED OFF DISTAL DRESSING TO RIGHT HIP, DR. FRAZIER CALLED, ORDER TO REPLACE DRESSING TO TRY TO PREVENT PT FROM PULLING OUT AGA, DRESSING REPLACED WITH GAUZE AND TEGADERM. BED ALARM IN PLACE.
--- NOTE | 2018-07-02 20:27 | NUR ---
NOTIFIED BY 1:1 HEAVY EQUIPMENT SALES ASSOCIATE THAT PT PICKING AT HIS SURGICAL SITE/AGA. NEW OPSITE PLACED BY THIS FUR POINTER. PT ATTENDS AND LINENS CHANGED. PT TOLERATED OK, REPORTS PAIN WITH TURNING. 1:1 HEAVY EQUIPMENT SALES ASSOCIATE REMAINS IN ROOM WITH PT. PT DISORIENTED. ROOM IN VIEW OF RN STATION. CALL LIGHT IN REACH.
--- NOTE | 2018-07-02 20:29 | NUR ---
CONFUSED, EASILY REDIRECTABLE, [place]. ON ROOM AIR. LOWER BILAT SCLERA RED, SCANT AMOUNT OF WATERY AND YELLOW DRAINAGE. R HIP DRESSING REINFORCED PT TOOK IT OFF AND WAS PICKING AT AGA, ABD APPLIED AND COVERED WITH OPSITE. PT UNABLE TO UNDERSTAND NEED TO KEEP DRESSING ON. REASON WHY WRITTEN IN PAPER IN BIG BOLD LETTERS FOR PT TO READ. STATED UNDERSTANDING, BUT UNABLE TO COMPREHEND AMOUNT OF UNDERSTANDING. TOOK PO MEDS WELL. TOLERATING LIQUIDS WELL. WAS INCONTINENT OF URINE, ATTENDS CHANGED, REQUIRED 2 PERSON ASSIST. MULTIPLE BRUISING IN DIFFERENT STAGES OF HEALING NOTED ON PTS ARMS, AND FRESH AND OLD SCABBS IN LEGS BILAT. BED ALARM ON AND A STRAFF IS WITHIN HANDS REACH OF PT FOR SAFETY. HOB ELEVATED. IVF INFUSING, PT PICKING AT IV SITE, REDIRECTED.
--- NOTE | 2018-07-02 22:11 | NUR ---
I was with patient at the beginning of the shift, he was confused and didnt know he was in the hospital or that he broke is hip. He kept thinking i was saying someone called him and helped him understand his surroundings and what was happening. He kept picking at his katherine so BRADY Gonzalez was notified and she changed his dressing.
--- NOTE | 2018-07-02 22:22 | NUR ---
PT HOB ELEVATED, CONTINUES TO TRY AND TAKE IV/SL AND R HIP DRESSING OFF. STAFF IN ROOM AT [facility], BED ALARM ON. CALL LIGHT AT BEDSIDE
--- NOTE | 2018-07-03 03:19 | NUR ---
CONTINUES TO BE AWAKE, RESTLESS, ONE STAFF AT HANDS REACH TO PROTECT PT PULLING ON HIS IV OR DRESSING. HAS BEEN INCONTINENT OF URINE . EASILY REDIRECTABLE
--- NOTE | 2018-07-03 05:04 | NUR ---
PT CURRENTLY RESTING, EYES CLOSED, CALM. CONTINUES TO REQUIRE ONE STAFF CLOSE ASSISTANCE AT ARMS LENGHT TO PREVENT PT FROM PULLING AT R HIP DRESSING AND IV. GOOD CMS R LEG. DRESSING WAS REINFORCED LAST NIGHT HE PULLED OUT. BILAT LOWER SCLERA RED, MOIST WITH CLEAR TO YELLOW EYE DRAINAGE PRESENT, . PT IS CREEK BUT ABLE TO READ WHAT GETS WRITTEN DOWN FOR HIM. 0200 TYLENOL HELD HE WAS RESTING THAT TIME. HAS BEEN INCONTINENT OF URINE AND BOWEL, CHANGED, REQUIRES 2 PA. SKIN CARE DONE. BED ALARM ON
--- NOTE | 2018-07-03 07:04 | NUR ---
INCONTINENT OF URINE, SKIN CARE DONE. PROCEDURE EXPLAINED TO PT, NOT VERY RECEPTIVE. PT MORONGO, WRITTEN INFORMATION GIVE. CLEAN ATTENDS DONE. CONTINUES ON CLOSE OBSERVATION WITH STAFF IN ROOM AND AT HANDS REACH. BED ALARM ON. INCREASED BRUISING NOTED L HIP, DRESSING TOP WITH OLD DRAINAGE, COVERED WITH OPSITE. AGA COVERED WTIH [id number] AND OPSITE. ALLEVYN IN PLACE AT BUTTOCKS SIDE
--- NOTE | 2018-07-03 07:05 | NUR ---
BEDSIDE HANDOFF REPORT RECEIVED FROM WATER PLANT PUMP OPERATOR SUPERVISOR RN. 1:1 SITTER AT BEDSIDE. PT RESTING QUIETLY IN BED.
--- NOTE | 2018-07-03 07:29 | NUR ---
DID PATIENT'S BLOOD SUGAR CHECK.
--- NOTE | 2018-07-03 07:31 | NUR ---
PATIENT IS NOW SLEEPING BED ALARM IS ON.
--- NOTE | 2018-07-03 09:50 | NUR ---
PT SLEEPING, MORNING MEDICATIONS HELD UNTIL AWAKE.
--- NOTE | 2018-07-03 10:09 | NUR ---
PATIENT IS SLEEPING.
--- NOTE | 2018-07-03 11:08 | NUR ---
PT NOW AWAKE. PT COMPLAINT OF PAIN TO RIGHT HIP, GIVEN TYLENOL. PT ON ROOM AIR, LUNG SOUNDS CLEAR. PT WITH RIGHT HIP DRESSINGS , CDI, BRUISING AROUND INCISION SITES. OUTLINED. PT REFUSING TO GET TO CHAIR, SITTING IN BED, EATING BREAKFAST. 3 UNITS SS HUMALOG GIVEN FOR BLLOD GLUCOSE 205. CMS INTACT, WITHOUT EDEMA. PT INCONTINENT OF URINE, LARGE AMOUNT, PERICARE PERFORMED. BED ALARM IN PLACE. PT DENIES OTHER NEEDS AT THIS TIME.
--- NOTE | 2018-07-03 11:10 | NUR ---
PATIENT WOKE UP AROUND A 1100AM. DIDN'T WANT TO SIT IN THE CHAIR. PATIENT IS EATING HIS BREAKFAST IN BED. ALSO THE NURSE AND I AND OTHER CHARTER BOAT CAPTAIN HELPED CHANGE HIM. TOOK OUT HIS IV.
--- NOTE | 2018-07-03 11:33 | NUR ---
BROUGHT PATIENT SOME ICE WATER.
--- NOTE | 2018-07-03 11:44 | NUR ---
WASHED HIS FACE AND DID ORAL CARE. GOING TO GET HIM SOME MORE ICE WATER.
--- NOTE | 2018-07-03 15:34 | NUR ---
PT SLEEPING, LEFT UNDISTURBED. INCISION SITE ASSESSED, NO NEW BRUISING OR DRAINAGE. BED ALARM ON, ALLOWED TO SLEEP.
--- NOTE | 2018-07-03 15:42 | NUR ---
PATIENT IN BED RESTING WITH EYES CLOSED. CALL LIGHT IN REACH. NO FURTHER NEEDS AT THIS TIME.
--- NOTE | 2018-07-03 16:03 | NUR ---
PT INCONTINENT OF URINE, PERICARE PERFORMED. PT DROWSY, IMMEDIATELY FELL BACK ASLEEP. PT ALLOWED TO REST.
--- NOTE | 2018-07-03 17:42 | NUR ---
PT SLEEPY THROUGHOUT DAY, POOR ORAL INTAKE, REQUIRING ENCOURAGEMENT TO STAY AWAKE FOR DINNER AND TO DRINK WATER. DR. GRIFFIN NOTIFIED.
--- NOTE | 2018-07-03 18:09 | NUR ---
AT BEDSIDE, UPDATED ON PT CONDITION AND PLAN OF CARE. ENCOURAGED TO SIT WITH PT AND ENCOURAGE HIM TO EAT. DENIES OTHER NEEDS AT THIS TIME.
--- NOTE | 2018-07-03 18:31 | NUR ---
PT DROWSY TODAY, WOKE FOR A FEW HOURS LATE MORNING TO AFTERNOON AND THEN AROUND DINNER. PT PN ROOM AIR, LUNG SOUND CLEAR. PT PAINT WELL CONTROLLED WITH TYLENOL, INCREASED PAIN WITH MOVEMENT. PT TOLERATIGN ADA DIET, ENCOURAGE INTAKE. CMS INTACT, WITHOUT EDEMA. BRUISING AROUND INCISION SITE ON RIGHT HIP, UNCHANGED, DRESSINGS INTACT. PT INCONTINENT OF URINE, QS.
--- NOTE | 2018-07-03 18:58 | NUR ---
PATIENT SITTING UP IN BED EATING DINNER. IN ROOM. CALL LIGHT IN REACH. NO FURTHER NEEDS AT THIS TIME.
--- NOTE | 2018-07-03 22:20 | NUR ---
CUSTOMER SERVICE ADMINISTRATOR ROUNDING NOTE. PT RESTING IN BED WITH EYES CLOSED, FIDGETING WITH HANDS. WHITE BOARD UPDATED. ROOM IN VIEW OF RN STATION WITH CURTAIN OPEN, CALL LIGHT IN REACH. BED ALARM ACTIVE.
--- NOTE | 2018-07-04 00:22 | NUR ---
V/S AND I&O DONE AND CHARTED. CHANGED ATTENDS AND REPOSITIONED DONE BY RN SAMIRA AND THIS COMPUTER DESIGNER. BED ALARM ON.
--- NOTE | 2018-07-04 05:29 | NUR ---
PT HAS SLEPT OFF AND ON THIS SHIFT, CALMER. HAS NOT TRIED TO RIP DRESSING FROM R IP. BRUISING OVER R GROIN, AND R LEG AND L ARM, SCABBING OVER R LEG HEALING. BILAT RED SCLERA BOTH EYES W SCANT AMOUNT OF WTERY/CREAMY EYE DRAINAGE. GETS TYLENOL ATC. INCONTINENT OF URINE, SKIN CARE DONE, RED PEELING AREA BUTTOCKS NOTED, OPSITE TO AREAS. HAS NOT HAD A BM. PT SEMI COOPERATIVE WITH PROCEDURES. SAXMAN BUT READS WRITTEN INSTRUCTIONS. TURNED Q2.
--- NOTE | 2018-07-04 08:24 | NUR ---
PT RESTING SUPINE IN BED, EYES CLOSED AND RESPIRATIONS EVEN AND UNLABORED. CALL LIGHT AND H20 IN REACH. PT APPEARS TO BE SLEEPING COMFORTABLY. REMAINS IN VIEW OF NURSING STATION.
--- NOTE | 2018-07-04 09:12 | NUR ---
PT RESTIGN IN BED ALERT TO VOICE, APPEARS TO BE COMFORTABLE . ASSESSMENT COMPLETED. NO NEEDS/CONCERNS VOICED. CALL LIGHT AND H20 IN REACH.
--- NOTE | 2018-07-04 11:35 | NUR ---
PT SITTING UP IN CHAIR WORKING WITH PT, PT APPEARS TO BE IN PAIN WITH MOVEMENT. PT ALERT BUT NEEDED TO BE REOPRIENTED TO PERSON, PLACE AND SITUATION. SCHEDULED PO TYLENOL ADMINISTERED. CALL LIGHT AND H2O IN REACH. PT APPEARS TO BE IN NO DISTRESS AT REST.
[2018-07-04] MEDS ORDERED: ULTRAM50 MG PO (13:19)
[2018-07-04] MEDS ORDERED: VENTOLIN HFA18 GM (13:19)
--- NOTE | 2018-07-04 13:38 | NUR ---
PT SITTING UP IN CHAIR, FACIAL GRIMMACE NOTED WITH MOVEMENT, FACES SCALE IS 4-5/10. OXY ADMINISTERED FOR PAIN. ASSESSMENT COMPLETED. FAMILY AT BEDSIDE CALL LIGHT AND H20 IN REACH. NO FURTHER NEEDS/CONCERNS VOICED.
== END 2018-07-04 14:58 | disposition home or self-care (01) | DRG 481 ==
LOC: ED 16:04 → MS 16:05
PROVIDERS: ADMIT Orthopaedic Surgery
PROC: 0QH636Z Insertion of Intramedullary Internal Fixation Device into Right Upper Femur, Percutaneous Approach (ICD-10-PCS; principal; 2018-07-01 13:00)
DX: S72.041A Displaced fracture of base of neck of right femur, initial encounter for closed fracture (principal); F02.81 Dementia in other diseases classified elsewhere, unspecified severity, with behavioral disturbance; W18.30XA Fall on same level, unspecified, initial encounter; I10 Essential (primary) hypertension; E11.9 Type 2 diabetes mellitus without complications; G30.9 Alzheimer's disease, unspecified; E87.70 Fluid overload, unspecified; I25.10 Atherosclerotic heart disease of native coronary artery without angina pectoris; H91.10 Presbycusis, unspecified ear; N40.0 Benign prostatic hyperplasia without lower urinary tract symptoms; K21.9 Gastro-esophageal reflux disease without esophagitis; E78.5 Hyperlipidemia, unspecified; Y92.003 Bedroom of unspecified non-institutional (private) residence as the place of occurrence of the external cause; Z95.1 Presence of aortocoronary bypass graft; Z95.3 Presence of xenogenic heart valve; Z79.84 Long term (current) use of oral hypoglycemic drugs; Z79.82 Long term (current) use of aspirin; Z79.891 Long term (current) use of opiate analgesic; Z79.899 Other long term (current) drug therapy
CPT/HCPCS: 01210; 36415; 51702; 70450; 71045; 72170; 73501; 73502; 80048; 80053; 81001; 83036; 83880; 85025; 93005; 93010; 94762; 96374; 99285-25; C1713; G0378; J0690; J1100; J1815; J1885; J1940; J2250; J2270; J2274; J2370; J2405; J2704; J2765; J3010; J7030; J7120